=== PATIENT | male | born 1960 | race Caucasian/White ===

== ENCOUNTER → 2022-04-02 | Outpatient (CLI) | payer BC ==
--- NOTE | 2022-04-02 13:49 | KCIC ---
Ultrasound head and neck soft tissue nonvascular HISTORY: Swelling and pain Sonographic interrogation made of the palpable abnormality left between the shoulder and neck. There is a small normal-appearing lymph node that measures 2.7 mm in its short axis. There is no abnormalit y identified. IMPRESSION: No significant findings. Electronically signed by: Raymond Lovell III, MD (04/02/2022 1:47 PM) [facility]
== END ==
LOC: KCIC US 10:18
PROVIDERS: ATTEND Family Medicine
DX: R22.1 Localized swelling, mass and lump, neck (principal)
CPT/HCPCS: 76536